=== PATIENT | male | born 1970 | race Hispanic/Latino ===

== ENCOUNTER 2019-06-01 18:04 | Emergency (ER) | payer OTHER ==
[2019-06-01 19:17] LABS: CREATININE 1.1 mg/dL (0.5-1.5); POTASSIUM 4.3 mmol/L (3.5-5.1)
[2019-06-01 19:18] LABS: BASOPHILS % (AUTO) 0.4 % (0.0-5.0); EOSINOPHILS % (AUTO) 2.4 % (0.0-8.0); HEMATOCRIT 47.2 % (42-54); LYMPHOCYTES % (AUTO) 5.2 % (21.0-51.0); MEAN CORPUSCULAR HEMOGLOBIN 31.8 pg (27.0-33.0); MEAN CORPUSCULAR HGB CONC 34.3 g/dL (32.0-36.0); MEAN CORPUSCULAR VOLUME 92.7 fL (79-99); MONOCYTES % (AUTO) 2.7 % (3.0-13.0); NEUTROPHILS % (AUTO) 88.9 % (40.0-77.0); PLATELET COUNT (AUTO) 242 K/uL (130-400); RED BLOOD CELL COUNT(AUTO) 5.09 MIL/uL (4.50-6.20); RED CELL DISTRIBUTION WIDTH 12.8 % (11.0-15.5); WHITE BLOOD COUNT (AUTO) 8.5 K/uL (4.8-10.8)
[2019-06-01 19:21] LABS: ALBUMIN 3.9 g/dL (3.5-5.0); BILIRUBIN,TOTAL 0.7 mg/dL (0.2-1.0)
[2019-06-01 20:52] LABS: APPEARANCE,URINE Clear (CLEAR); BILIRUBIN,URINE Negative (NEGATIVE); COLOR,URINE Yellow (YELLOW); GLUCOSE, URINE (UA) Negative (NEGATIVE); KETONES,URINE Negative (NEGATIVE); LEUKOCYTE ESTERASE ,URINE Negative (NEGATIVE); NITRATE,URINE Negative (NEGATIVE); OCCULT BLOOD,URINE Trace (NEGATIVE); PROTEIN,URINE Negative (NEGATIVE); UROBILINOGEN,URINE 0.2 mg/dL (0.2-1.0)
[2019-06-01 21:02] LABS: AMPHET/METH SCREEN,URINE NEGATIVE (NEGATIVE); BARBITURATE SCREEN, URINE NEGATIVE (NEGATIVE); BENZODIAZEPINES SCREEN,URINE POSITIVE (NEGATIVE); CANNABINOID SCREEN,URINE POSITIVE (NEGATIVE); COCAINE SCREEN,URINE POSITIVE (NEGATIVE); OPIATE SCREEN,URINE NEGATIVE (NEGATIVE); PHENCYCLIDINE SCREEN,URINE NEGATIVE (NEGATIVE)
[2019-06-01 21:05] LABS: BACTERIA,URINE Few /HPF (None Seen); MUCUS,URINE Few LPF (None Seen); RAPID GROUP A STREP NEGATIVE (NEGATIVE); RBC,URINE None Seen /HPF (0-1); SQUAMOUS EPITHELIAL CELL,UR None Seen /HPF (0-2); WBC,URINE 0-1 /HPF (0-1)
== END 2019-06-01 21:36 | disposition home or self-care (01) ==
LOC: EDH 18:04
DX: R11.2 Nausea with vomiting, unspecified (principal); R19.7 Diarrhea, unspecified; I10 Essential (primary) hypertension; K21.9 Gastro-esophageal reflux disease without esophagitis; F32.9 Major depressive disorder, single episode, unspecified; F41.9 Anxiety disorder, unspecified; Z87.891 Personal history of nicotine dependence
CPT/HCPCS: 36415; 76770; 80053; 80305; 81001; 85025; 87804; 87880

== ENCOUNTER 2019-12-11 23:46 | Emergency (ER) | payer OTHER ==
[2019-12-11] MEDS ORDERED: LIDOCAINE HCL 1% 20 ML VIAL ONE (23:57)
[2019-12-12] MEDS ORDERED: LIDOCAINE HCL 1% 20 ML VIAL ONE (00:03)
[2019-12-12] MEDS ORDERED: ERYTHROMYCIN BASE 0.5% OPHTH OINT 1 GM TUBE ONE (02:22)
== END 2019-12-12 00:48 | disposition home or self-care (01) ==
LOC: EDH 23:46
DX: T16.1XXA Foreign body in right ear, initial encounter (principal); F41.9 Anxiety disorder, unspecified; F32.9 Major depressive disorder, single episode, unspecified; I10 Essential (primary) hypertension; K21.9 Gastro-esophageal reflux disease without esophagitis; X58.XXXA Exposure to other specified factors, initial encounter; Y93.9 Activity, unspecified; Y92.89 Other specified places as the place of occurrence of the external cause; Y99.8 Other external cause status
CPT/HCPCS: 69200

== ENCOUNTER 2020-11-05 03:35 | Emergency (ER) | payer OTHER ==
[~2020-11-05] VITALS: Ht 180.3 cm; Wt 97.5 kg
[2020-11-05 03:42] VITALS: BP 130/61
[2020-11-05] MEDS ORDERED: FAMOTIDINE 20MG TAB ONE (05:46)
[2020-11-05] MEDS ORDERED: LIDOCAINE HCL 2% VISCOUS 15 ML UDCUP ONE (05:46)
[2020-11-05] MEDS ORDERED: PANTOPRAZOLE 40 MG TAB DR ONE (05:46)
[2020-11-05] MEDS ORDERED: MAGNESIUM HYDROXIDE 30 ML/UDCUP ONE (05:46)
[2020-11-05] MEDS ORDERED: DICYCLOMINE HCL 20 MG TAB ONE (05:47)
[2020-11-05] MEDS ORDERED: LIDOCAINE HCL 2% VISCOUS 15 ML UDCUP PO ONE (06:00)
[2020-11-05] MEDS ORDERED: ONDANSETRON ODT 4MG TAB SL ONE (06:00)
[2020-11-05] MEDS ORDERED: PANTOPRAZOLE 40 MG TAB DR PO SCH (06:00)
[2020-11-05] MEDS ORDERED: MAG/ALUM/SIMETH 30 ML UDCUP PO ONE (06:00)
[2020-11-05] MEDS ORDERED: DICYCLOMINE 20MG (10MG/ML) AMP IM ONE (06:00)
[2020-11-05] MEDS ORDERED: FAMOTIDINE 20MG TAB PO ONE (06:00)
[2020-11-05] MEDS ORDERED: METO-296 PO (06:37)
[2020-11-05] MEDS ORDERED: ONDA4TAB10 PO (06:37)
[2020-11-05] MEDS ORDERED: DICY20TA2 PO (06:37)
[2020-11-05] MEDS ORDERED: PANT40TA54 PO (06:37)
== END 2020-11-05 06:47 | disposition home or self-care (01) ==
LOC: EDH 04:07
DX: K21.9 Gastro-esophageal reflux disease without esophagitis (principal); R10.13 Epigastric pain; F31.9 Bipolar disorder, unspecified; F41.9 Anxiety disorder, unspecified; Z79.899 Other long term (current) drug therapy

== ENCOUNTER 2021-02-04 14:30 | Emergency (ER) | payer OTHER ==
[~2021-02-04] VITALS: Ht 180.3 cm; Wt 117.9 kg
[~2021-02-04 14:30] MED LIST: DICY20TA2 PO; METO-296 PO; ONDA4TAB10 PO; PANT40TA54 PO
[2021-02-04 14:31] VITALS: BP 136/85
[2021-02-04] MEDS ORDERED: CEFTRIAXONE 1G VIAL IM ONE (17:30)
[2021-02-04] MEDS ORDERED: LIDOCAINE HCL-MPF 1% 2ML VIAL ONE (18:13)
[2021-02-04] MEDS ORDERED: AMOX-429 PO (18:41)
== END 2021-02-04 18:49 | disposition home or self-care (01) ==
LOC: EDH 14:30
DX: H61.21 Impacted cerumen, right ear (principal); H66.91 Otitis media, unspecified, right ear; I10 Essential (primary) hypertension; Z79.899 Other long term (current) drug therapy; Z86.16 Personal history of COVID-19
CPT/HCPCS: 69210; 96372; 99284; J0696; J3490

== ENCOUNTER 2021-03-09 17:32 | Emergency (ER) | payer OTHER ==
[~2021-03-09] VITALS: Ht 180.3 cm; Wt 108.9 kg
[~2021-03-09 17:32] MED LIST changes: +AMOX-429 PO
[2021-03-09 17:37] VITALS: BP 105/79
[2021-03-09] MEDS ORDERED: ALBUTEROL INHALER 90MCG/INH IH SCH (18:30)
[2021-03-09] MEDS ORDERED: AMOX/CLAV 875/125MG TAB PO SCH (18:30)
[2021-03-09] MEDS ORDERED: PREDNISONE 20 MG TABLET PO SCH (18:30)
[2021-03-09] MEDS ORDERED: GUAIFENESIN-DM 200/20 MG 10 ML PO SCH (18:30)
[2021-03-09] MEDS ORDERED: PRED20TA3 PO (19:15)
[2021-03-09] MEDS ORDERED: AMOX-429 PO (19:15)
[2021-03-09] MEDS ORDERED: ALBU8.5H8 IH (19:15)
== END 2021-03-09 19:54 | disposition home or self-care (01) ==
LOC: EDH 17:32
DX: J40 Bronchitis, not specified as acute or chronic (principal); Z20.822 Contact with and (suspected) exposure to COVID-19
CPT/HCPCS: 71045; 87635; 87804 ×2; 87880; 99284; C9803

== ENCOUNTER 2025-02-04 08:19 | Emergency (ER) | payer SELFPAY ==
[~2025-02-04] VITALS: Ht 180.3 cm; Wt 104.3 kg
[~2025-02-04 08:19] MED LIST changes: +ALBU8.5H8 IH; +ONDA-243 PO; -ONDA4TAB10 PO; +PRED20TA3 PO
--- NOTE | 2025-02-04 08:23 | ERN ---
General Chief Complaint: Chest Pain Stated Complaint: CP Time Seen by MD: 08:20 Source: patient History of Present Illness Initial Comments Patient is a 54-year-old male coming in complaining of chest pain. Per patient the chest pain in his unbearable 01/29 present in the epigastric and midsternal region. The pain is sharp. Patient states he does not have any history of card iac issues in the past. Allergies: Coded Allergies: No Known Drug Allergies (Unverified Allergy, Unknown, 06/01/19) Home Meds Active Scripts Albuterol Sulfate (Proair Hfa) 8.5 Gm Hfa.aer.ad, 2 PUFF IH QIDP, #1 INHALER Prov:NOAM THOMAS 03/09/21 Prednisone (Prednisone) 20 Mg Tablet, 2 TAB PO AD for 5 Days, #10 TAB 0 Refills TAKE 1 TAB BY MOUTH THREE TIMES PER DAY X3 DAYS, THEN TAKE 1 TAB BY MOUTH TWICE A DAY X2 DAYS, THEN TAKE 1 TAB BY MOUTH ONCE A DAY X1 DAY. Prov:NOAM THOMAS 03/09/21 Amoxicillin/Potassium Clav (Augmentin 875-125 Tablet) 1 Each Tablet, 1 TAB PO BID for 10 Days, #20 TAB 0 Refills Prov:NOAM THOMAS 03/09/21 Amoxicillin/Potassium Clav (Augmentin 875-125 Tablet) 1 Each Tablet, 1 TAB PO BID for 10 Days, #20 TAB 0 Refills Prov:NOAM THOMAS 02/04/21 Metoclopramide HCl (Reglan) 10 Mg Tablet, 10 MG PO TIDP, #20 TAB 0 Refills Prov:FLY MINA MD 11/05/20 Pantoprazole Sodium (Pantoprazole Sodium) 40 Mg Tablet.dr, 40 MG PO DAILY, #10 TAB 0 Refills Prov:FLY MINA MD 11/05/20 Ondansetron (Ondansetron Odt) 4 Mg Tab.rapdis, 4 MG PO Q6HPRN, #20 TAB 0 Refills Prov:FLY MINA MD 11/05/20 Dicyclomine HCl (Bentyl) 20 Mg Tab, 20 MG PO Q6HPRN, #20 TAB 0 Refills Prov:FLY MINA MD 11/05/20 Past Medical History Past Medical History: Anxiety, Bipolar, Depression, GERD Medical History Other: COVID 10/2019 Surgical History Other: RT KNEE Social History Social History: Negative, Lives alone ROS Dictation CONSTITUTIONAL: No chills, no fever, no weakness, no diaphoresis, no malaise. HEAD/FACE: No signs of trauma. EENT: No eye pain, no blurred vision, no tearing, no double vision, no ear pain, no ear discharge, no nose pain, no nasal congestion, no throat pain, no throat swelling, no mouth pain. RESPIRATORY: No cough, no orthopnea, no SOB, no stridor, no wheezing. CARDIOVASCULAR: chest pain, no edema, no palpitations, no syncope. GASTROINTESTINAL/ABDOMINAL: No abdominal pain, no constipation, no diarrhea, no nausea, no vomiting. GENITOURINARY: No abnormal discharge, no dysuria, no frequent urination, no hematuria. No complaints of pain in the genitals. MUSCULOSKELETAL: No back pain, no gout, no joint pain, no joint swelling, no muscle pain, no muscle stiffness, no neck pain. INTEGUMENTARY: No change in color, no change in hair/nails, no dryness, no lesion, no lumps, no rash. NEUROLOGICAL/PSYCH: No anxiety, not depressed, no emotional problem, no headache, no numbness, no pre-existing deficit, no history of seizures, no tremors, no weakness. HEMATOLOGIC/LYMPHATIC: Not anemic, no history of blood clots, no apparent bleeding, no bruising, glands not swollen. All Systems Negative, Except as Noted. Physical Exam Physical Exam Dictation VITAL SIGNS: Reviewed. GENERAL APPEARANCE: Alert, oriented x3, no acute distress, obese. HEAD AND FACE: Non-traumatic. EYES: PERRL, pink conjunctivas, eyelid no trauma, anterior chamber clear. EARS: Pinnas intact and no signs of trauma or erythema. Ear canals clear and no discharge. TMs no erythema. NOSE: No discharge, no bleeding. OROPHARYNX: Mouth normal, teeth no caries, tongue pink. Pharynx clear, no erythema. Tonsils no exudates, no abscesses noted. Mucous membrane moist. NECK: Supple, non-tender, no thyromegaly, no masses, no JVD, no bruits. BREAST: Deferred. CHEST: No tenderness, no crepitus, no paradoxical movement, no retractions. LUNGS: Clear, well-ventilated, symmetric, no rales, no wheezing, no rhonchi, no stridor, good breath sounds bilaterally. HEART: Regular rate, regular rhythm, no murmur, no gallops. VASCULAR: No peripheral edema. ABDOMEN: Soft, positive bowel sounds, nondistended, no guarding, nontender, no rebound, no masses no hepatomegaly, no splenomegaly, no Guerra's sign, no hernias. RECTAL: Deferred. GENITAL: Deferred. NEUROLOGICAL: Normal speech, gross motor function intact, gross sensory function intact. MUSCULOSKELETAL: Neck nontender, full range of motion, back nontender, full range of motion. EXTREMITIES: Nontender, full range of motion. SKIN: Color pink, dry, no turgor, no rash, no lacerations, no abrasions, no contusions. LYMPHATICS: Deferred. Results Laboratory and Microbiology Lab and Micro Result Laboratory Tests Test 02/04/25 08:29 02/04/25 09:11 White Blood Count 5.9 K/uL (4.8-10.8) Red Blood Count 5.36 MIL/uL (4.50-6.20) Hemoglobin 16.6 g/dL (14.0-18.0) Hematocrit 48.6 % (42-54) Mean Corpuscular Volume 90.7 fL (79-99) Mean Corpuscular Hemoglobin 31.0 pg (27.0-33.0) Mean Corpuscular Hemoglobin Concent 34.2 g/dL (32.0-36.0) Red Cell Distribution Width 13.4 % (11.0-15.5) Platelet Count 283 K/uL (130-400) Mean Platelet Volume 10.6 fL (7.5-10.5) H Immature Granulocyte % (Auto) 0.5 % (0-1) Neutrophils (%) (Auto) 45.7 % (40.0-77.0) Lymphocytes (%) (Auto) 43.8 % (21.0-51.0) Monocytes (%) (Auto) 7.8 % (3.0-13.0) Eosinophils (%) (Auto) 1.7 % (0.0-8.0) Basophils (%) (Auto) 0.5 % (0.0-5.0) Neutrophils # (Auto) 2.7 K/uL (1.8-7.7) Lymphocytes # (Auto) 2.6 K/uL (1.0-4.8) Monocytes # (Auto) 0.5 K/uL (0.1-1.0) Eosinophils # (Auto) 0.10 K/uL (0.00-0.70) Basophils # (Auto) 0.03 K/uL (0.00-0.20) Absolute Immature Granulocyte (auto 0.03 K/uL (0-1) Nucleated Red Blood Cells 0.0 % (0.0-0.19) Prothrombin Time 10.4 SEC (9.6-11.6) Prothromb Time International Ratio 0.98 (0.85-1.15) Activated Partial Thromboplast Time 25.9 SEC (26.3-35.5) L Sodium Level 144 mmol/L (136-145) Potassium Level 3.9 mmol/L (3.5-5.1) Chloride Level 104 mmol/L (101-111) Carbon Dioxide Level 32 mmol/L (21-32) Blood Urea Nitrogen 6 mg/dL (7-18) L Creatinine 1.0 mg/dL (0.5-1.3) Glomerular Filtration Rate Calc 88 mL/min (>90) Random Glucose 100 mg/dL (70-105) Total Calcium 9.0 mg/dL (8.5-10.1) Magnesium Level 2.30 mg/dL (1.80-2.40) Total Creatine Kinase 188 U/L (21-232) Troponin I High Sensitivity 5 ng/L (4-75) Serum Alcohol 123 mg/dL (0-10) H Urine Color LIGHT-YELLOW (YELLOW) Urine Appearance CLEAR (CLEAR) Urine pH 6.5 (5.0-8.0) Urine Specific [place] 1.009 (1.001-1.031) Urine Protein NEGATIVE mg/dL (NEGATIVE) Urine Glucose (UA) NEGATIVE mg/dL (NEGATIVE) Urine Ketones NEGATIVE mg/dL (NEGATIVE) Urine Occult Blood NEGATIVE (NEGATIVE) Urine Nitrate NEGATIVE (NEGATIVE) Urine Bilirubin NEGATIVE mg/dL (NEGATIVE) Urine Urobilinogen 0.2 mg/dL (0.2-1.0) Urine Leukocyte Esterase NEGATIVE Kristen/uL Urine Opiates Screen NEGATIVE (NEGATIVE) Urine Barbiturates Screen NEGATIVE (NEGATIVE) Urine Phencyclidine Screen NEGATIVE (NEGATIVE) Urine Amphetamines Screen NEGATIVE (NEGATIVE) Urine Benzodiazepines Screen NEGATIVE (NEGATIVE) Urine Cocaine Screen POSITIVE (NEGATIVE) H Urine Marijuana (THC) Screen NEGATIVE (NEGATIVE) Labs Reviewed?: Yes EKG/XRAY/US/CT/MRI EKG Comment 02/04/2025 time 8:21 a.m. Ventricular rate 77 Sinus rhythm [place] [address] wave elevation or depression X-RAY Comment IMAGING REPORT Signed PATIENT: NICK YEUNG MR#: [id number] : 1970 SEX: M AGE: 54 LOCATION: [facility] ORDER 1 STATUS: [facility] ER REPORT#: [id number] SERVICE 9 REASON: cp ORDERING PHYSICIAN: JONATHAN GOINS MD PROCEDURE: CXR1VW - CHEST 1VW EXAM: CR Chest, single view. CLINICAL HISTORY: Chest pain. COMPARISON: None. FINDINGS: The lungs show no infiltrate or other acute findings. No pleural effusion or pneumothorax. The cardiomediastinal silhouette is within normal limits. No acute osseous abnormality. IMPRESSION: No acute cardiopulmonary pathology is evident. /[place] DICTATED BY: SUNITA CAMPO Jr., MD DATE: 02/04/251016 ELECTRONICALLY SIGNED BY: SUNITA CAMPO Jr., MD DATE: 02/04/251016 [facility] MDM: Differential diagnosis: Chest pain, NSTEMI, STEMI, cocaine abuse, drug abuse, alcohol abuse, Rationale: Tests considered and ordered secondary to shared decision making include: labs, ECG and radiology Previous outside records reviewed: Old ER visits. Risk of complication and/or morbidity or mortality of patient management: None Medications-Per medication reconciliation Need for hospitalization: Patient does meet criteria for hospitalization. Need for emergency major/minor surgery: No Patient is a 54-year-old gentleman coming in complaining of chest pain. Patient states that the chest pain woke him up in the morning. Laboratory workup disclose cocaine and alcohol. Rest of labs within normal limits. Patient was consulted and educated on cocaine abuse avoidance. He states that his pain has subsided. Patient will be discharged in stable condition with a diagnosis of cocaine abuse. ED Course Orders Procedure Category Date Status Time Cbc With Differential LAB 02/04/25 Complete 08:20 Prothrombin Time With LAB 02/04/25 Complete INR 08:20 Chest 1vw RAD 02/04/25 Resulted 08:20 12 Lead Ekg Tracing- EKG 02/04/25 Complete Technical 08:20 Aspirin 81mg Chew Tab PHA 02/04/25 Complete (Aspirin 81mg Chew 08:30 Nitroglycerin 0.4mg PHA 02/04/25 In Process Sl Tab (Nitrostat) 08:30 Magnesium LAB 02/04/25 Complete 08:20 Creatine Kinase, Total LAB 02/04/25 Complete 08:20 Troponin I High LAB 02/04/25 Complete Sensitivity 08:20 Urinalysis Profile LAB 02/04/25 Complete 08:20 Partial LAB 02/04/25 Complete Thromboplastin Time 08:20 Basic Metabolic Panel LAB 02/04/25 Complete 08:20 Drug Screen Urine LAB 02/04/25 Complete 08:25 Alcohol, Blood LAB 02/04/25 Complete 08:25 0.9%Nacl 1000ml (Ns PHA 02/04/25 Complete 1000ml) 10:00 Current Medications Medications (Trade) Dose Ordered Sig/Tiffanie Route PRN Reason Start Time Stop Time Status Last Admin Dose Admin Aspirin (Aspirin 81mg Chew Tab) 81 mg ONCE ONCE PO 02/04/25 08:30 02/04/25 08:31 DC 02/04/25 08:36 Nitroglycerin (Nitrostat) 0.4 mg Q5M PRN SL CHEST PAIN 02/04/25 08:30 02/04/25 08:37 Sodium Chloride 1,000 ml @ 0 mls/hr ONCE ONCE IV 02/04/25 10:00 02/04/25 10:01 DC 02/04/25 10:06 Vital Signs Date Time Temp Pulse Resp B/P (MAP) Pulse Ox O2 Delivery O2 Flow Rate FiO2 02/04/25 08:24 96.6 85 20 190/127 100 Room Air* 0 21 02/04/25 08:20 96.6 85 20 190/127 100 Room Air 0 DX & DISP Disposition: Discharge Departure Impression: Primary Impression: Cocaine abuse Additional Impressions: Gastritis, Alcohol abuse Condition: Stable Additional Instructions: You have been reviewed in the emergency department at [facility] after presenting with chest pain. After considering your history, your risk factors, your EKG and your blood test troponins, have been found to be at very low risk less than (1 in 100) of having a major adverse cardiac event (like heart attack) in the near future. In the " low risk" group, the risks of doing further tests and treatment as the inpatient outweighs the benefits. In many patients in the low risk group for the test of any sort or unnecessary, however he should discuss this further with his general practitioner who will understand the medical and personal backgrounds better. Because we have never declared you" no risk" we would suggest. 1 returning for medical review if you have further episodes of chest pain/arm pain or other concerning symptoms like dizziness, collapse, palpitations or shortness of breath. 2. Following up with your local doctor who will consider the need for further testing and will also ensure that any modifiable risk factors you may have for heart disease are optimally managed. Patient will be discharged in stable condition at the moment discharge patient states , no chest pain Referrals: SELF,REFERRAL (PCP) MAURICE ANTONIO MD Time of Disposition: 10:37 JONATHAN GOINS MD Feb 04, 2025 08:23
[2025-02-04 08:24] VITALS: BP 190/127; PULSE 85; RESP 20; TEMP 96.6; O2SAT 100
--- NOTE | 2025-02-04 08:27 | EKG ---
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
[2025-02-04] MEDS: ASPIRIN 81MG CHEW TAB PO ONE (08:36)
[2025-02-04] MEDS: NITROGLYCERIN 0.4 MG SL TAB SL PRN (08:37)
[2025-02-04 08:38] LABS: IMMATURE GRANULOCYTE ABSOLUTE 0.03 K/uL (0-1); NUCLEATED RED BLOOD CELLS 0.0 % (0.0-0.19); PLATELET COUNT (AUTO) 283 K/uL (130-400); RED BLOOD CELL COUNT(AUTO) 5.36 MIL/uL (4.50-6.20); RED CELL DISTRIBUTION WIDTH 13.4 % (11.0-15.5); WHITE BLOOD COUNT (AUTO) 5.9 K/uL (4.8-10.8)
[2025-02-04 08:47] LABS: INR 0.98 (0.85-1.15)
[2025-02-04 08:53] LABS: CREATINE KINASE, TOTAL 188.0 U/L (21-232); CREATININE 1.0 mg/dL (0.5-1.3); GLOMERULAR FILTR. RATE CALC 88.0 mL/min (>90); GLUCOSE,RANDOM 100.0 mg/dL (70-105); SODIUM SERUM 144.0 mmol/L (136-145); UREA NITROGEN, BLOOD 6.0 mg/dL (7-18)
--- NOTE | 2025-02-04 09:17 | HMCIMG ---
EXAM: CR Chest, single view. CLINICAL HISTORY: Chest pain. COMPARISON: None. FINDINGS: The lungs show no infiltrate or other acute findings. No pleural effusion or pneumothorax. The cardiomediastinal silhouette is within normal limits. No acute osseous abnormality. IMPRESSION: No acute cardiopulmonary pathology is evident. /[place]
[2025-02-04 09:40] LABS: APPEARANCE,URINE CLEAR (CLEAR); GLUCOSE, URINE (UA) NEGATIVE (NEGATIVE); LEUKOCYTE ESTERASE ,URINE NEGATIVE Leu/uL (NEGATIVE); NITRATE,URINE NEGATIVE (NEGATIVE); OCCULT BLOOD,URINE NEGATIVE (NEGATIVE)
[2025-02-04 09:42] LABS: ADD UA MICROSCOPIC NO
[2025-02-04 09:48] LABS: AMPHET/METH SCREEN,URINE NEGATIVE (NEGATIVE); BARBITURATE SCREEN, URINE NEGATIVE (NEGATIVE); CANNABINOID SCREEN,URINE NEGATIVE (NEGATIVE); COCAINE SCREEN,URINE POSITIVE (NEGATIVE)
[2025-02-04] MEDS: 0.9%NACL 1000ML 1,000 ML IV ONE (10:06)
== END 2025-02-04 11:23 | disposition home or self-care (01) ==
LOC: EDH 08:19
DX: K29.70 Gastritis, unspecified, without bleeding (principal); F14.10 Cocaine abuse, uncomplicated; F10.10 Alcohol abuse, uncomplicated; F41.9 Anxiety disorder, unspecified; F31.9 Bipolar disorder, unspecified; Z79.899 Other long term (current) drug therapy; Z79.2 Long term (current) use of antibiotics
CPT/HCPCS: 99285; 96360; 71045; 82550; 83735; 84484; 80048; 80305; 85025; 85610; 85730; 81003; 36415; 93005; J7030

== ENCOUNTER 2025-02-24 12:10 | Inpatient (IN) | payer SELFPAY ==
[~2025-02-24] VITALS: Ht 180.3 cm; Wt 112.5 kg
[2025-02-24 12:41] LABS: IMMATURE GRANULOCYTE ABSOLUTE 0.01 K/uL (0-1); NUCLEATED RED BLOOD CELLS 0.0 % (0.0-0.19); PLATELET COUNT (AUTO) 187 K/uL (130-400); RED BLOOD CELL COUNT(AUTO) 4.56 MIL/uL (4.50-6.20); RED CELL DISTRIBUTION WIDTH 13.1 % (11.0-15.5); WHITE BLOOD COUNT (AUTO) 6.8 K/uL (4.8-10.8)
[2025-02-24 12:49] LABS: CREATININE 0.9 mg/dL (0.5-1.3); GLOMERULAR FILTR. RATE CALC 100.0 mL/min (>90); GLUCOSE,RANDOM 107.0 mg/dL (70-105); SODIUM SERUM 136.0 mmol/L (136-145); UREA NITROGEN, BLOOD 11.0 mg/dL (7-18)
[2025-02-24 13:00] LABS: APPEARANCE,URINE CLEAR (CLEAR); GLUCOSE, URINE (UA) NEGATIVE (NEGATIVE); LEUKOCYTE ESTERASE ,URINE NEGATIVE Leu/uL (NEGATIVE); NITRATE,URINE NEGATIVE (NEGATIVE); OCCULT BLOOD,URINE NEGATIVE (NEGATIVE)
[2025-02-24 13:05] LABS: ADD UA MICROSCOPIC NO
[2025-02-24 13:09] LABS: AMPHET/METH SCREEN,URINE NEGATIVE (NEGATIVE); BARBITURATE SCREEN, URINE NEGATIVE (NEGATIVE); CANNABINOID SCREEN,URINE NEGATIVE (NEGATIVE); COCAINE SCREEN,URINE NEGATIVE (NEGATIVE)
--- NOTE | 2025-02-24 13:34 | HMCIMG ---
EXAM: CR Chest, 1 View. CLINICAL HISTORY: CP COMPARISON: 02/04 8:47 EDT CR - CHEST 1VW FINDINGS: LUNGS: There is no mass, infiltrate, or acute pulmonary abnormality. PLEURAL SPACES: No pleural effusion or pneumothorax. MEDIASTINUM: Cardiac size and mediastinal contours within normal limits. BONES: No aggressive appearing osseous lesion seen. IMPRESSION: No acute cardiopulmonary pathology is evident. /[place]
--- NOTE | 2025-02-24 14:15 | ERN ---
General Chief Complaint: Chest Pain Stated Complaint: CP Time Seen by MD: 12:15 Source: patient History of Present Illness Initial Comments Patient is a 54-year-old gentleman coming in complaining of chest pressure. Patient states that the chest pressure began about an hour and a half ago. He states that the discomfort was brought upon on its own he was not doing anything physical. He has had something similar before. Allergies: Coded Allergies: No Known Drug Allergies (Unverified Allergy, Unknown, 06/01/19) Home Meds Active Scripts Albuterol Sulfate (Proair Hfa) 8.5 Gm Hfa.aer.ad, 2 PUFF IH QIDP, #1 INHALER Prov:NOAM THOMAS 03/09/21 Prednisone (Prednisone) 20 Mg Tablet, 2 TAB PO AD for 5 Days, #10 TAB 0 Refills TAKE 1 TAB BY MOUTH THREE TIMES PER DAY X3 DAYS, THEN TAKE 1 TAB BY MOUTH TWICE A DAY X2 DAYS, THEN TAKE 1 TAB BY MOUTH ONCE A DAY X1 DAY. Prov:NOAM THOMAS 03/09/21 Amoxicillin/Potassium Clav (Augmentin 875-125 Tablet) 1 Each Tablet, 1 TAB PO BID for 10 Days, #20 TAB 0 Refills Prov:NOAM THOMAS 03/09/21 Amoxicillin/Potassium Clav (Augmentin 875-125 Tablet) 1 Each Tablet, 1 TAB PO BID for 10 Days, #20 TAB 0 Refills Prov:NOAM THOMAS 02/04/21 Metoclopramide HCl (Reglan) 10 Mg Tablet, 10 MG PO TIDP, #20 TAB 0 Refills Prov:FLY MINA MD 11/05/20 Pantoprazole Sodium (Pantoprazole Sodium) 40 Mg Tablet.dr, 40 MG PO DAILY, #10 TAB 0 Refills Prov:FLY MINA MD 11/05/20 Ondansetron (Ondansetron Odt) 4 Mg Tab.rapdis, 4 MG PO Q6HPRN, #20 TAB 0 Refills Prov:FLY MINA MD 11/05/20 Dicyclomine HCl (Bentyl) 20 Mg Tab, 20 MG PO Q6HPRN, #20 TAB 0 Refills Prov:FLY MINA MD 11/05/20 Past Medical History Past Medical History: No Pertinent History Medical History Other: COVID 10/2019 Past Surgical History: Other Surgical History Other: BILATERAL KNEE REPLACEMENT Social History Social History: Negative, Lives alone ROS Dictation CONSTITUTIONAL: No chills, no fever, no weakness, no diaphoresis, no malaise. HEAD/FACE: No signs of trauma. EENT: No eye pain, no blurred vision, no tearing, no double vision, no ear pain, no ear discharge, no nose pain, no nasal congestion, no throat pain, no throat swelling, no mouth pain. RESPIRATORY: No cough, no orthopnea, no SOB, no stridor, no wheezing. CARDIOVASCULAR: chest pain, no edema, no palpitations, no syncope. GASTROINTESTINAL/ABDOMINAL: No abdominal pain, no constipation, no diarrhea, no nausea, no vomiting. GENITOURINARY: No abnormal discharge, no dysuria, no frequent urination, no hematuria. No complaints of pain in the genitals. MUSCULOSKELETAL: No back pain, no gout, no joint pain, no joint swelling, no muscle pain, no muscle stiffness, no neck pain. INTEGUMENTARY: No change in color, no change in hair/nails, no dryness, no lesion, no lumps, no rash. NEUROLOGICAL/PSYCH: No anxiety, not depressed, no emotional problem, no headache, no numbness, no pre-existing deficit, no history of seizures, no tremors, no weakness. HEMATOLOGIC/LYMPHATIC: Not anemic, no history of blood clots, no apparent bleeding, no bruising, glands not swollen. All Systems Negative, Except as Noted. Physical Exam Physical Exam Dictation VITAL SIGNS: Reviewed. GENERAL APPEARANCE: Alert, oriented x3, no acute distress, obese. HEAD AND FACE: Non-traumatic. EYES: PERRL, pink conjunctivas, eyelid no trauma, anterior chamber clear. EARS: Pinnas intact and no signs of trauma or erythema. Ear canals clear and no discharge. TMs no erythema. NOSE: No discharge, no bleeding. OROPHARYNX: Mouth normal, teeth no caries, tongue pink. Pharynx clear, no erythema. Tonsils no exudates, no abscesses noted. Mucous membrane moist. NECK: Supple, non-tender, no thyromegaly, no masses, no JVD, no bruits. BREAST: Deferred. CHEST: No tenderness, no crepitus, no paradoxical movement, no retractions. LUNGS: Clear, well-ventilated, symmetric, no rales, no wheezing, no rhonchi, no stridor, good breath sounds bilaterally. HEART: Regular rate, regular rhythm, no murmur, no gallops. VASCULAR: No peripheral edema. ABDOMEN: Soft, positive bowel sounds, nondistended, no guarding, nontender, no rebound, no masses no hepatomegaly, no splenomegaly, no Guerra's sign, no hernias. RECTAL: Deferred. GENITAL: Deferred. NEUROLOGICAL: Normal speech, gross motor function intact, gross sensory function intact. MUSCULOSKELETAL: Neck nontender, full range of motion, back nontender, full range of motion. EXTREMITIES: Nontender, full range of motion. SKIN: Color pink, dry, no turgor, no rash, no lacerations, no abrasions, no contusions. LYMPHATICS: Deferred. Results Laboratory and Microbiology Lab and Micro Result Laboratory Tests Test 02/24/25 12:32 02/24/25 12:35 02/24/25 14:18 Urine Color COLORLESS (YELLOW) Urine Appearance CLEAR (CLEAR) Urine pH 5.5 (5.0-8.0) Urine Specific [place] 1.005 (1.001-1.031) Urine Protein NEGATIVE mg/dL (NEGATIVE) Urine Glucose (UA) NEGATIVE mg/dL (NEGATIVE) Urine Ketones NEGATIVE mg/dL (NEGATIVE) Urine Occult Blood NEGATIVE (NEGATIVE) Urine Nitrate NEGATIVE (NEGATIVE) Urine Bilirubin NEGATIVE mg/dL (NEGATIVE) Urine Urobilinogen 0.2 mg/dL (0.2-1.0) Urine Leukocyte Esterase NEGATIVE Kristen/uL Urine Opiates Screen NEGATIVE (NEGATIVE) Urine Barbiturates Screen NEGATIVE (NEGATIVE) Urine Phencyclidine Screen NEGATIVE (NEGATIVE) Urine Amphetamines Screen NEGATIVE (NEGATIVE) Urine Benzodiazepines Screen NEGATIVE (NEGATIVE) Urine Cocaine Screen NEGATIVE (NEGATIVE) Urine Marijuana (THC) Screen NEGATIVE (NEGATIVE) White Blood Count 6.8 K/uL (4.8-10.8) Red Blood Count 4.56 MIL/uL (4.50-6.20) Hemoglobin 14.5 g/dL (14.0-18.0) Hematocrit 41.7 % (42-54) L Mean Corpuscular Volume 91.4 fL (79-99) Mean Corpuscular Hemoglobin 31.8 pg (27.0-33.0) Mean Corpuscular Hemoglobin Concent 34.8 g/dL (32.0-36.0) Red Cell Distribution Width 13.1 % (11.0-15.5) Platelet Count 187 K/uL (130-400) Mean Platelet Volume 11.1 fL (7.5-10.5) H Immature Granulocyte % (Auto) 0.1 % (0-1) Neutrophils (%) (Auto) 69.4 % (40.0-77.0) Lymphocytes (%) (Auto) 18.9 % (21.0-51.0) L Monocytes (%) (Auto) 9.9 % (3.0-13.0) Eosinophils (%) (Auto) 1.3 % (0.0-8.0) Basophils (%) (Auto) 0.4 % (0.0-5.0) Neutrophils # (Auto) 4.7 K/uL (1.8-7.7) Lymphocytes # (Auto) 1.3 K/uL (1.0-4.8) Monocytes # (Auto) 0.7 K/uL (0.1-1.0) Eosinophils # (Auto) 0.09 K/uL (0.00-0.70) Basophils # (Auto) 0.03 K/uL (0.00-0.20) Absolute Immature Granulocyte (auto 0.01 K/uL (0-1) Nucleated Red Blood Cells 0.0 % (0.0-0.19) Sodium Level 136 mmol/L (136-145) Potassium Level 4.2 mmol/L (3.5-5.1) Chloride Level 101 mmol/L (101-111) Carbon Dioxide Level 30 mmol/L (21-32) Blood Urea Nitrogen 11 mg/dL (7-18) Creatinine 0.9 mg/dL (0.5-1.3) Glomerular Filtration Rate Calc 100 mL/min (>90) Random Glucose 107 mg/dL (70-105) H Total Calcium 8.1 mg/dL (8.5-10.1) L Magnesium Level 1.90 mg/dL (1.80-2.40) Troponin I High Sensitivity 5 ng/L (4-75) 5 ng/L (4-75) B-Type Natriuretic Peptide 28 pg/mL (0-100) Labs Reviewed?: Yes EKG/XRAY/US/CT/MRI EKG Comment 02/24/2025 time 12:06 p.m. Ventricular rate 80 Sinus rhythm [place] [address] wave elevation or depression X-RAY Comment [address] [place], [place] [id number] IMAGING REPORT Signed PATIENT: NICK YEUNG MR#: [id number] : 1970 SEX: M AGE: 54 LOCATION: [facility] ORDER 1213 STATUS: REG ER REPORT#: [id number] SERVICE 1212 REASON: CP ORDERING PHYSICIAN: JONATHAN GOINS MD PROCEDURE: CXR1VW - CHEST 1VW EXAM: CR Chest, 1 View. CLINICAL HISTORY: CP COMPARISON: 02/04 8:47 EDT CR - CHEST 1VW FINDINGS: LUNGS: There is no mass, infiltrate, or acute pulmonary abnormality. PLEURAL SPACES: No pleural effusion or pneumothorax. MEDIASTINUM: Cardiac size and mediastinal contours within normal limits. BONES: No aggressive appearing osseous lesion seen. IMPRESSION: No acute cardiopulmonary pathology is evident. /Homer DICTATED BY: SUNITA CAMPO Jr., MD DATE: 02/24/251433 ELECTRONICALLY SIGNED BY: SUNITA CAMPO Jr., MD DATE: 02/24/251433 [facility] MDM: Differential diagnosis: Angina, STEMI, NSTEMI, chest pain, Rationale: Tests considered and ordered secondary to shared decision making include: Previous outside records reviewed: Old ER visits. Risk of complication and/or morbidity or mortality of patient management: None Medications-Per medication reconciliation Need for hospitalization: Patient does meet criteria for hospitalization. Need for emergency major/minor surgery: No There are no social concerns with this patient. Prescription drug management Prescriptions will include symptomatic care Patient's prior external medical records from other ER visits were reviewed by me as indicated. Prior testing and results from previous visits were reviewed. Prior tests were taken into account with medical decision making and resource utilization, independent historian/historians were used to obtain complete medical history. I independently interpreted the test that were performed, results were reviewed by me and considered findings on radiology if ordered. Medical management and examination interpretation discussions were had by me with other qualified healthcare professionals as indicated for the patient's care. Patient is a 54-year-old gentleman coming in complaining of chest pain. Patient states that the chest pain improved somewhat but is still present. Cardiac enzymes x2 is negative for any findings patient will be admitted under t care of hospitalist group for observation ongoing management. ED Course Orders Procedure Category Date Status Time Cbc With Differential LAB 02/24/25 Complete 12:12 12 Lead Ekg Tracing- EKG 02/24/25 Logged Technical 12:12 Troponin I High LAB 02/24/25 Complete Sensitivity 12:12 B-Type Natriuretic LAB 02/24/25 Complete Peptide 12:12 Chest 1vw RAD 02/24/25 Resulted 12:12 Magnesium LAB 02/24/25 Complete 12:12 Urinalysis Profile LAB 02/24/25 Complete 12:12 Drug Screen Urine LAB 02/24/25 Complete 12:12 Basic Metabolic Panel LAB 02/24/25 Complete 12:12 Troponin I High LAB 02/24/25 Complete Sensitivity 14:10 Ondansetron 4mg Inj PHA 02/24/25 Complete (Zofran 4mg Inj) 14:30 Lidocaine Hcl 2% PHA 02/24/25 Complete Viscous (Lidocaine Hcl 14:30 Mag/Alum/Simeth 30ml PHA 02/24/25 Complete (Maalox Plus 30ml) 14:30 Pantoprazole 40mg Inj PHA 02/24/25 Complete (Protonix 40mg Inj 14:30 Aspirin 325mg Ec Tab PHA 02/24/25 Complete (Aspirin 325mg Ec T 15:00 Current Medications Medications (Trade) Dose Ordered Sig/Tiffanie Route PRN Reason Start Time Stop Time Status Last Admin Dose Admin Al Hydroxide/Mg Hydroxide (MAALox PLUS 30ML) 30 ml ONCE ONCE PO 02/24/25 14:30 02/24/25 14:31 DC 02/24/25 14:19 Aspirin (Aspirin 325mg Ec Tab) 325 mg ONCE ONCE PO 02/24/25 15:00 02/24/25 15:01 DC Lidocaine HCl (Lidocaine HCl 2% Viscous) 10 ml ONCE ONCE PO 02/24/25 14:30 02/24/25 14:31 DC 02/24/25 14:20 Ondansetron HCl (zoFRAN 4MG INJ) 4 mg ONCE ONCE IVP 02/24/25 14:30 02/24/25 14:31 DC 02/24/25 14:20 Pantoprazole Sodium (PROTonix 40MG INJ) 40 mg ONCE ONCE IVP 02/24/25 14:30 02/24/25 14:31 DC 02/24/25 14:20 Vital Signs Date Time Temp Pulse Resp B/P (MAP) Pulse Ox O2 Delivery O2 Flow Rate FiO2 02/24/25 14:34 73 16 133/79 99 Room Air* 0 21 02/24/25 13:10 74 16 128/78 97 Room Air* 0 21 02/24/25 12:13 98.2 80 16 101/65 98 Room Air 0 DX & DISP Disposition: Inpatient Decision to Admit Time: 15:18 Departure Impression: Primary Impression: Chest pain Condition: Stable Referrals: RIANNA MOURA (PCP) JONATHAN GOINS MD Feb 24, 2025 14:15
[2025-02-24] MEDS: MAG/ALUM/SIMETH 30 ML UDCUP PO ONE (14:19)
[2025-02-24] MEDS: LIDOCAINE HCL 2% VISCOUS 15 ML UDCUP PO ONE (14:20)
[2025-02-24] MEDS: ASPIRIN 325MG EC TAB PO ONE (15:11)
--- NOTE | 2025-02-24 15:11 | NUR ---
PT TOOK ASPIRIN 325 MG PO BY EMS PRIOR TO ARRIVAL TO ER
--- NOTE | 2025-02-24 16:10 | HP ---
[facility] HISTORY AND PHYSICAL Date of Service: Feb 24, 2025 Time of Service: 16:10 HISTORY OF PRESENT ILLNESS: 54-year-old male with no significant past medical history history who presented to the hospital secondary to chest pain. Patient states while at work he noted that he was having midsternal chest pain. The pain is located in the midsternal area and does not radiate. He did not have any paresthesias, arm numbness associated with the pain. Denied any pain radiating towards his jaw or back. Describes the pain as sharp, pressure-like in intensity. He had a similar episode of pain around two weeks ago when he came to the emergency room. He was discharged and recommended to follow up with his primary care provider. He currently does not take any medications at home. Denied any cough, fever, abdominal pain, nausea, vomiting. He Did have episodes of sweating with the pain. He also felt short of breath during the episode of pain. Labs were notable for white count of 6.8, hemoglobin was 14.5, platelet count was 187 K, sodium was 136, potassium was 4.2, creatinine was 0.9, blood glucose was 107, calcium was 8.1 Troponin was negative x2, BNP was 28 Patient had chest x-ray done which was negative REVIEW OF SYSTEMS CONSTITUTIONAL: Denies fevers, chills, or night sweats. No unintentional weight loss reported. NEUROLOGICAL: Denies headache, amaurosis fugax, motor weakness, sensory deficit, vertigo/spinning sensation, gait abnormalities, or tremors. ENT: No hearing loss, otalgia, otorrhea, rhinitis, rhinorrhea, hoarseness, or sore throat. CARDIOVASCULAR: Positive for chest pain, shortness of breath. Denied any orthopnea, PND PULMONARY: Denies any shortness of breath, cough, phlegm/sputum, hemoptysis, pleuritic chest pain. SLEEP: Denies morning headaches, daytime somnolence or napping. Denies difficulty falling asleep, staying asleep, waking from sleep. Denies knowledge of snoring. GASTROINTESTINAL: Denies any type of dysphagia to either liquids or solids. Denies nausea, vomiting, pyrosis, early satiety, abdominal pain, diarrhea, constipation, or changes in stool consistency or caliber. Denies coffee-ground emesis, hematemesis, hematochezia, or melanotic stools. GENITOURINARY: Denies frequency, urgency, nocturia, hematuria or incontinence (Storage/Irritative symptoms.) Low urinary stream, straining to void, urinary intermittency or hesitancy, splitting of the voiding stream, terminal dribbling. ENDOCRINOLOGIC: Denies polyuria, polydipsia, polyphagia or heat/cold intolerances. HEMATOLOGIC: Denies thrombophilia/previous clots, or coagulopathy/bleeding disorders. ONCOLOGIC: Denies personal history of malignancy. DERMATOLOGIC: Denies rashes or pruritus. PSYCHIATRIC: Denies any suicidal or homicidal ideation. Denies hallucinations. PAST MEDICAL HISTORY: No significant past medical history PAST SURGICAL HISTORY: History of knee surgery PAST SOCIAL HISTORY: He used to smoke cigar but quit around three weeks ago. He drinks but quit drinking three weeks ago. He would drink around twice a week. He has a history of cocaine use FAMILY HISTORY: History of pacemaker placement for the father Coded Allergies: No Known Drug Allergies (Unverified Allergy, Unknown, 06/01/19) PHYSICAL EXAM GENERAL APPEARANCE: The patient is awake, alert, and oriented, in no acute cardiopulmonary distress. NEUROLOGICAL: Cranial nerves II-XII grossly intact. Motor is 5/5 in bilateral upper and lower extremities proximal to distal. No sensory deficits. HEENT: Face is symmetric. Pupils are equal and reactive. Extraocular movements are intact. NECK: Supple. No JVD. No thyromegaly. No submental, submandibular, pre- /postauricular, occipital or supraclavicular lymphadenopathy. CHEST: Normal chest expansion. No Telemetry. LUNGS: Absence of any rales, rhonchi or any wheezing. CARDIOVASCULAR: Regular. S1 and S2 normal. No appreciable rubs, murmurs or gallops. Mild pain on palpation in the midsternal area. ABDOMEN: Soft, nontender, and nondistended. There is no rebound, voluntary guarding, or rigidity. : Deferred. No Goldstein. EXTREMITIES: Non-edematous and not cyanotic. No clubbing. Good capillary refill. SKIN: No skin breakdown. Vital Sign (Last 24 Hours) 02/24/25 15:45 Temp 98.2 Pulse 74 Resp 16 B/P (MAP) 120/72 Pulse Ox 98 O2 Delivery Room Air* O2 Flow Rate 0 FiO2 21 LABS: Laboratory: Test 02/24/25 14:18 02/24/25 12:35 02/24/25 12:32 Range/Units Troponin I High Sensitivity 5 4-75 ng/L White Blood Count 6.8 4.8-10.8 K/uL Red Blood Count 4.56 4.50-6.20 MIL/uL Hemoglobin 14.5 14.0-18.0 g/dL Hematocrit 41.7 L 42-54 % Mean Corpuscular Volume 91.4 79-99 fL Mean Corpuscular Hemoglobin 31.8 27.0-33.0 pg Mean Corpuscular Hemoglobin Concent 34.8 32.0-36.0 g/dL Red Cell Distribution Width 13.1 11.0-15.5 % Platelet Count 187 130-400 K/uL Mean Platelet Volume 11.1 H 7.5-10.5 fL Immature Granulocyte % (Auto) 0.1 0-1 % Neutrophils (%) (Auto) 69.4 40.0-77.0 % Lymphocytes (%) (Auto) 18.9 L 21.0-51.0 % Monocytes (%) (Auto) 9.9 3.0-13.0 % Eosinophils (%) (Auto) 1.3 0.0-8.0 % Basophils (%) (Auto) 0.4 0.0-5.0 % Neutrophils # (Auto) 4.7 1.8-7.7 K/uL Lymphocytes # (Auto) 1.3 1.0-4.8 K/uL Monocytes # (Auto) 0.7 0.1-1.0 K/uL Eosinophils # (Auto) 0.09 0.00-0.70 K/uL Basophils # (Auto) 0.03 0.00-0.20 K/uL Absolute Immature Granulocyte (auto 0.01 0-1 K/uL Nucleated Red Blood Cells 0.0 0.0-0.19 % Sodium Level 136 136-145 mmol/L Potassium Level 4.2 3.5-5.1 mmol/L Chloride Level 101 101-111 mmol/L Carbon Dioxide Level 30 21-32 mmol/L Blood Urea Nitrogen 11 7-18 mg/dL Creatinine 0.9 0.5-1.3 mg/dL Glomerular Filtration Rate Calc 100 >90 mL/min Random Glucose 107 H 70-105 mg/dL Total Calcium 8.1 L 8.5-10.1 mg/dL Magnesium Level 1.90 1.80-2.40 mg/dL B-Type Natriuretic Peptide 28 0-100 pg/mL Urine Color COLORLESS YELLOW Urine Appearance CLEAR CLEAR Urine pH 5.5 5.0-8.0 Urine Specific [place] 1.005 1.001-1.031 Urine Protein NEGATIVE NEGATIVE mg/dL Urine Glucose (UA) NEGATIVE NEGATIVE mg/dL Urine Ketones NEGATIVE NEGATIVE mg/dL Urine Occult Blood NEGATIVE NEGATIVE Urine Nitrate NEGATIVE NEGATIVE Urine Bilirubin NEGATIVE NEGATIVE mg/dL Urine Urobilinogen 0.2 0.2-1.0 mg/dL Urine Leukocyte Esterase NEGATIVE NEGATIVE Kristen/uL Urine Opiates Screen NEGATIVE NEGATIVE Urine Barbiturates Screen NEGATIVE NEGATIVE Urine Phencyclidine Screen NEGATIVE NEGATIVE Urine Amphetamines Screen NEGATIVE NEGATIVE Urine Benzodiazepines Screen NEGATIVE NEGATIVE Urine Cocaine Screen NEGATIVE NEGATIVE Urine Marijuana (THC) Screen NEGATIVE NEGATIVE DIAGNOSTICS / RADIOLOGY: [ ] ASSESSMENT: Chest pain ACS rule out History of smoking History of alcohol use History of cocaine use PLAN: - patient to be admitted to medical-surgical unit with telemetry -in reference to chest pain. We will trend troponins q.6 hours to rule out ACS. We will also obtain echocardiogram. Secondary to patient's recurrent episodes of pain we will request consultation with Cardiology. -patient will be started on potassium and magnesium protocol -check TSH, hemoglobin A1c, lipid panel in a.m. -further orders per hospitalization course Advanced Care Planning Which of the following were discussed: Hospice care: Yes __ No _x_ Therapeutic options: Yes __ No __ Advance directives: Yes __ No __ Other discussions: Discussed with who?: patient (Patient, family or surrogates) Voluntary nature of this service was explained to the patient? Yes _x_ No __ Amount of time spent: 20 minutes RAMONITA Ca MD, MD Feb 24, 2025 16:10
--- NOTE | 2025-02-24 16:25 | EKG ---
[facility] Test Date: 2025-02-24 Test Time: 12:06:43 Pat Name: NICK YEUNG Department: ED Room: 428 Gender: M Manager Transit: [id number] : 1970 Requested By: JONATHAN GOINS Order Number: [id number] Reading MD: Micheline Quinones Measurements Intervals [place] Rate: 80 P: 4 VT: 178 QRS: -45 QRSD: 102 T: -7 QT: 394 QTc: 454 Interpretive Statements Sinus rhythm Left axis deviation Compared to ECG 02/04/2025 08:21:09 Left-axis deviation now present Myocardial infarct finding no longer present Electronically Signed On 02-25-2025 12:31:43 GOLD BURNISHER by Micheline Quinones Please click the below link to view image of tracing.
[2025-02-24] MEDS ORDERED: PoTASSium chloRIDE 20MEQ ER 20 MEQ ERTAB PO PRN (16:30)
[2025-02-24] MEDS ORDERED: PoTASSium chl 10% ELIXIR 20MEQ 20 MEQ/15 ML UDCUP PO PRN (16:30)
[2025-02-24] MEDS ORDERED: NITROGLYCERIN 0.4 MG SL TAB SL PRN (16:30)
[2025-02-24] MEDS ORDERED: MAGNESIUM 2GM PREMIX 50ML 50 ML IV PRN (16:30)
--- NOTE | 2025-02-24 19:20 | NUR ---
PT CARE ASSUMED AT THIS TIME
--- NOTE | 2025-02-24 19:49 | NUR ---
TRANSFER CARE TO ARGELIA RN AT THIS TIME. REPORT GIVEN.
[2025-02-24] MEDS ORDERED: CLON2TAB11 PO (19:58)
[2025-02-24] MEDS ORDERED: VORT20TA PO (19:58)
[2025-02-24] MEDS ORDERED: LAMO100T16 PO (19:58)
[2025-02-24] MEDS: FAMOTIDINE 20MG VIAL IV SCH (20:31)
--- NOTE | 2025-02-24 22:13 | CONS ---
CONSULT NOTE: CARDIOLOGY Reason for consult: Chest pain HPI/story at presentation: This is a pleasant 54-year-old male with past medical history as above presents for evaluation of chest discomfort. Pain is atypical, troponin 7 so far negative and cardiology was consulted. Stress test, echocardiogram ordered, 02/2025 Past medical history: See below Allergies, Meds See chart Review of systems Review of Systems Constitutional: Negative for chills and fever. HENT: Negative for ear discharge and ear pain. Eyes: Negative for photophobia and discharge. Respiratory: Negative for cough, sputum production and stridor. Cardiovascular: Negative for chest pain and palpitations. Gastrointestinal: Negative for diarrhea and vomiting. Genitourinary: Negative for frequency. Musculoskeletal: Negative for myalgias. Skin: Negative for rash. Neurological: Negative for focal weakness and seizures. Endo/Heme/Allergies: Negative for polydipsia. Psychiatric/Behavioral: Negative for hallucinations. Vitals see chart PHYSICAL EXAMINATION GENERAL: The patient is alert and oriented*3 HEENT: Nonicteric sclerae, non traumatic HEART: Regular rate and rhythm with no murmurs LUNGS: Clear to auscultation bilaterally ABDOMEN: No acute issues, non tender GENITAL, RECTAL: deferred SKIN: No rash NEUROLOGIC: NFND EXTREMITIES: No edema ASSESSMENT CHEST PAIN Atypical Associated with rest, good baseline functional capacity Very physically active Strong family history TOBACCO USE, FAMILY HISTORY, ALCOHOL USE, COCAINE USE CORE MEASURES Pending OTHER MEDICAL PROBLEMS Reviewed PLAN 02/24/2025 atypical symptoms, plan for stress test echocardiogram, will follow-up post. ATTESTATION I was involved substantially in the care of this patient Number and complexity of problems addressed: 1 acute illness with systemic features Amount and or complexity of data Review of prior external note(s) from each unique source: 2+ Ordering of each unique test : 0 Review of the result(s) of each unique test: 2+ Assessment requiring an independent historian(s): No Independent interpretation of test performed by another MD/QHCP/appropriate source (not separately reported) : No Discussion of management or test interpretation with external MD/QHCP/appropriate source (not separately reported) : No Risk status (cardiac, billing related): WALI Whittington MD Feb 24, 2025 22:13
[2025-02-24 22:20] VITALS: O2SAT 99
[2025-02-24 22:53] VITALS: BP 139/73; PULSE 72; RESP 18; TEMP 98.9
[2025-02-25 04:00] VITALS: BP 122/61; PULSE 73; RESP 18; TEMP 99.4
[2025-02-25 05:40] LABS: IMMATURE GRANULOCYTE ABSOLUTE 0.03 K/uL (0-1); NUCLEATED RED BLOOD CELLS 0.0 % (0.0-0.19); PLATELET COUNT (AUTO) 146 K/uL (130-400); RED BLOOD CELL COUNT(AUTO) 4.87 MIL/uL (4.50-6.20); RED CELL DISTRIBUTION WIDTH 13.1 % (11.0-15.5); WHITE BLOOD COUNT (AUTO) 7.0 K/uL (4.8-10.8)
[2025-02-25 05:45] LABS: CREATININE 1.1 mg/dL (0.5-1.3); GLOMERULAR FILTR. RATE CALC 79.0 mL/min (>90); GLUCOSE,RANDOM 110.0 mg/dL (70-105); SODIUM SERUM 135.0 mmol/L (136-145); UREA NITROGEN, BLOOD 9.0 mg/dL (7-18)
[2025-02-25 08:00] VITALS: BP 128/75; PULSE 59; RESP 18; TEMP 98.7; O2SAT 97
[2025-02-25] MEDS: REGADENOSON 0.4 MG/5 ML PF SYG IVP ONE (09:48)
[2025-02-25 12:00] VITALS: BP 148/91; PULSE 79; RESP 18; TEMP 99
--- NOTE | 2025-02-25 13:46 | PN ---
[facility] PROGRESS NOTE Date of Service: Feb 25, 2025 Time of Service: 13:42 SUBJECTIVE: [The patient, Jose Angel Barrett, is a 54-year-old male admitted for evaluation of chest pain. He was previously evaluated for midsternal, non-radiating, sharp, pressure-like chest pain associated with diaphoresis and shortness of breath. He denies current chest pain, shortness of breath, or other acute symptoms at this time. He just returned from a Lexiscan stress test; results are pending Cardiology interpretation. No new complaints reported. ] REVIEW OF SYSTEMS CONSTITUTIONAL: Denies fevers, chills, or night sweats. No unintentional weight loss reported. NEUROLOGICAL: Denies headache, amaurosis fugax, motor weakness, sensory deficit, vertigo/spinning sensation, gait abnormalities, or tremors. ENT: No hearing loss, otalgia, otorrhea, rhinitis, rhinorrhea, hoarseness, or sore throat. CARDIOVASCULAR: Positive for chest pain, shortness of breath. Denied any orthopnea, PND PULMONARY: Denies any shortness of breath, cough, phlegm/sputum, hemoptysis, pleuritic chest pain. SLEEP: Denies morning headaches, daytime somnolence or napping. Denies difficulty falling asleep, staying asleep, waking from sleep. Denies knowledge of snoring. GASTROINTESTINAL: Denies any type of dysphagia to either liquids or solids. Denies nausea, vomiting, pyrosis, early satiety, abdominal pain, diarrhea, constipation, or changes in stool consistency or caliber. Denies coffee-ground emesis, hematemesis, hematochezia, or melanotic stools. GENITOURINARY: Denies frequency, urgency, nocturia, hematuria or incontinence ( Storage/Irritative symptoms.) Low urinary stream, straining to void, urinary intermittency or hesitancy, splitting of the voiding stream, terminal dribbling. ENDOCRINOLOGIC: Denies polyuria, polydipsia, polyphagia or heat/cold intolerances. HEMATOLOGIC: Denies thrombophilia/previous clots, or coagulopathy/bleeding disorders. ONCOLOGIC: Denies personal history of malignancy. DERMATOLOGIC: Denies rashes or pruritus. PSYCHIATRIC: Denies any suicidal or homicidal ideation. Denies hallucinations. PHYSICAL EXAM GENERAL APPEARANCE: The patient is awake, alert, and oriented, in no acute cardiopulmonary distress. NEUROLOGICAL: Cranial nerves II-XII grossly intact. Motor is 5/5 in bilateral upper and lower extremities proximal to distal. No sensory deficits. HEENT: Face is symmetric. Pupils are equal and reactive. Extraocular movements are intact. NECK: Supple. No JVD. No thyromegaly. No submental, submandibular, pre- /postauricular, occipital or supraclavicular lymphadenopathy. CHEST: Normal chest expansion. No Telemetry. LUNGS: Absence of any rales, rhonchi or any wheezing. CARDIOVASCULAR: Regular. S1 and S2 normal. No appreciable rubs, murmurs or gallops. Mild pain on palpation in the midsternal area. ABDOMEN: Soft, nontender, and nondistended. There is no rebound, voluntary guarding, or rigidity. : Deferred. No Goldstein. EXTREMITIES: Non-edematous and not cyanotic. No clubbing. Good capillary refill. SKIN: No skin breakdown. Vital Signs (last 8hr) Date Time Temp Pulse Resp B/P (MAP) Pulse Ox O2 Delivery O2 Flow Rate FiO2 02/25/25 12:00 99.0 79 18 148/91 95 Room Air 02/25/25 08:00 98.8 59 18 128/75 97 Room Air LABS: Laboratory: Test 02/25/25 05:25 02/24/25 22:35 02/24/25 12:35 02/24/25 12:32 Range/Units White Blood Count 7.0 4.8-10.8 K/uL Red Blood Count 4.87 4.50-6.20 MIL/uL Hemoglobin 15.4 14.0-18.0 g/dL Hematocrit 44.3 42-54 % Mean Corpuscular Volume 91.0 79-99 fL Mean Corpuscular Hemoglobin 31.6 27.0-33.0 pg Mean Corpuscular Hemoglobin Concent 34.8 32.0-36.0 g/dL Red Cell Distribution Width 13.1 11.0-15.5 % Platelet Count 146 130-400 K/uL Mean Platelet Volume 11.9 H 7.5-10.5 fL Immature Granulocyte % (Auto) 0.4 0-1 % Neutrophils (%) (Auto) 71.5 40.0-77.0 % Lymphocytes (%) (Auto) 15.3 L 21.0-51.0 % Monocytes (%) (Auto) 11.3 3.0-13.0 % Eosinophils (%) (Auto) 1.1 0.0-8.0 % Basophils (%) (Auto) 0.4 0.0-5.0 % Neutrophils # (Auto) 5.0 1.8-7.7 K/uL Lymphocytes # (Auto) 1.1 1.0-4.8 K/uL Monocytes # (Auto) 0.8 0.1-1.0 K/uL Eosinophils # (Auto) 0.08 0.00-0.70 K/uL Basophils # (Auto) 0.03 0.00-0.20 K/uL Absolute Immature Granulocyte (auto 0.03 0-1 K/uL Nucleated Red Blood Cells 0.0 0.0-0.19 % Sodium Level 135 L 136-145 mmol/L Potassium Level 4.1 3.5-5.1 mmol/L Chloride Level 100 L 101-111 mmol/L Carbon Dioxide Level 28 21-32 mmol/L Blood Urea Nitrogen 9 7-18 mg/dL Creatinine 1.1 0.5-1.3 mg/dL Glomerular Filtration Rate Calc 79 >90 mL/min Random Glucose 110 H 70-105 mg/dL Total Calcium 8.2 L 8.5-10.1 mg/dL Troponin I High Sensitivity 5 4-75 ng/L Hemoglobin A1c 5.4 4.0-6.0 % Estimated Average Glucose (eAG) 108 70-126 mg/dL Magnesium Level 1.90 1.80-2.40 mg/dL B-Type Natriuretic Peptide 28 0-100 pg/mL Procalcitonin < 0.05 L 0.05-0.5 ng/mL Thyroid Stimulating Hormone (TSH) 1.71 0.36-3.74 uIU/mL Urine Color COLORLESS YELLOW Urine Appearance CLEAR CLEAR Urine pH 5.5 5.0-8.0 Urine Specific [place] 1.005 1.001-1.031 Urine Protein NEGATIVE NEGATIVE mg/dL Urine Glucose (UA) NEGATIVE NEGATIVE mg/dL Urine Ketones NEGATIVE NEGATIVE mg/dL Urine Occult Blood NEGATIVE NEGATIVE Urine Nitrate NEGATIVE NEGATIVE Urine Bilirubin NEGATIVE NEGATIVE mg/dL Urine Urobilinogen 0.2 0.2-1.0 mg/dL Urine Leukocyte Esterase NEGATIVE NEGATIVE Kristen/uL Urine Opiates Screen NEGATIVE NEGATIVE Urine Barbiturates Screen NEGATIVE NEGATIVE Urine Phencyclidine Screen NEGATIVE NEGATIVE Urine Amphetamines Screen NEGATIVE NEGATIVE Urine Benzodiazepines Screen NEGATIVE NEGATIVE Urine Cocaine Screen NEGATIVE NEGATIVE Urine Marijuana (THC) Screen NEGATIVE NEGATIVE Current Medications Medications (Trade) Dose Ordered Sig/Tiffanie Route PRN Reason Start Time Stop Time Status Last Admin Dose Admin Acetaminophen (TYLenol 500MG TAB) 500 mg Q6H PRN PO MILD PAIN (1-3) 02/24/25 16:30 03/26/25 16:29 Clonazepam (KLONopin 1MG TAB) 1 mg BID PO 02/24/25 21:00 03/26/25 20:59 02/24/25 21:05 1 MG Famotidine (Pepcid 20mg Vial) 20 mg BID IV 02/24/25 21:00 03/26/25 20:59 02/24/25 20:31 20 MG Home Med (Home Medication) VORIOXETINE 20MG DAILY PO 02/25/25 09:00 03/27/25 08:59 Lamotrigine (LAMIctal 100 MG TABLET) 150 mg DAILY PO 02/25/25 09:00 03/27/25 08:59 Magnesium Sulfate 50 ml @ 0 mls/hr PROTOCOL PRN IV hypomagnesemia 02/24/25 16:30 03/26/25 16:29 Morphine Sulfate (morPHINE 2MG SYG) 2 mg Q6H PRN IVP SEVERE PAIN (7-10) 02/24/25 16:30 03/03/25 16:29 Nitroglycerin (Nitrostat) 0.4 mg AD PRN SL CHEST PAIN 02/24/25 16:30 03/26/25 16:29 Potassium Chloride 100 ml @ 100 mls/hr AD PRN IV POTASSIUM PROTOCOL 02/24/25 16:30 03/26/25 16:29 Potassium Chloride (K-Dur/Klor-Con 20meq) 20 meq AD PRN PO POTASSIUM PROTOCOL 02/24/25 16:30 03/26/25 16:29 Potassium Chloride (KCl 10% Elixir 20meq/15ml) 20 meq AD PRN PO POTASSIUM PROTOCOL 02/24/25 16:30 03/26/25 16:29 DIAGNOSTICS / RADIOLOGY: [ ] ASSESSMENT: Chest pain, ACS rule out Troponins remain negative, no current symptoms, stress test and echo pending. History of smoking Quit three weeks ago. History of alcohol use Quit three weeks ago. History of cocaine use Remote, no recent use. PLAN: Continue admission to medical-surgical unit with telemetry monitoring Monitor for recurrence of chest pain or new symptoms Await Cardiology recommendations following Lexiscan stress test 2D echocardiogram pending Continue potassium and magnesium protocol as per hospital guidelines Follow up on TSH, HgbA1c, and lipid panel in the morning Monitor blood pressure; recheck as needed Further orders as per clinical course and test results Case discussed with Dr. Aquino, above plan was formulated ATTESTATION BY PHYSICIAN I have seen and examined the patient. I reviewed the documentation, medical decision making, and treatment plan as noted by the mid-level provider above. I agree with the findings and plan of care. CANELO AQUINO MD, [facility] Feb 25, 2025 13:46
--- NOTE | 2025-02-25 14:21 | NUR ---
DCP: HOME Pt sates he retired and went back to school at [employer]. pt lives alone in home he owns, Pt reports he is extremely active, works out 4x a week and walks. Pt needs no assist with his ADLS or home management or ambulation. Pt has no DME or in home care services. PCP is Harper villafuerte and uses [facility] for rx needs. DCP is home, pt denies dc needs. Community resources given
[2025-02-25 16:00] VITALS: BP 144/71; PULSE 80; RESP 18; TEMP 100.1
--- NOTE | 2025-02-25 18:17 | PN ---
CONSULT NOTE: CARDIOLOGY Reason for consult: Chest pain HPI/story at presentation: This is a pleasant 54-year-old male with past medical history as above presents for evaluation of chest discomfort. Pain is atypical, troponin 7 so far negative and cardiology was consulted. Stress test, echocardiogram ordered, 02/2025 Past medical history: See below Allergies, Meds See chart Review of systems Review of Systems Constitutional: Negative for chills and fever. HENT: Negative for ear discharge and ear pain. Eyes: Negative for photophobia and discharge. Respiratory: Negative for cough, sputum production and stridor. Cardiovascular: Negative for chest pain and palpitations. Gastrointestinal: Negative for diarrhea and vomiting. Genitourinary: Negative for frequency. Musculoskeletal: Negative for myalgias. Skin: Negative for rash. Neurological: Negative for focal weakness and seizures. Endo/Heme/Allergies: Negative for polydipsia. Psychiatric/Behavioral: Negative for hallucinations. Vitals see chart PHYSICAL EXAMINATION GENERAL: The patient is alert and oriented*3 HEENT: Nonicteric sclerae, non traumatic HEART: Regular rate and rhythm with no murmurs LUNGS: Clear to auscultation bilaterally ABDOMEN: No acute issues, non tender GENITAL, RECTAL: deferred SKIN: No rash NEUROLOGIC: NFND EXTREMITIES: No edema ASSESSMENT CHEST PAIN Atypical Associated with rest, good baseline functional capacity Very physically active Strong family history TOBACCO USE, FAMILY HISTORY, ALCOHOL USE, COCAINE USE CORE MEASURES Pending OTHER MEDICAL PROBLEMS Reviewed PLAN 02/24/2025 atypical symptoms, plan for stress test echocardiogram, will follow-up post. 02/25/2025 Denies any chest pain Currently pending stress test and echo results Further recommendations based on results ATTESTATION Case discussed with Dr. Sexton Vitals/Labs Vital Signs Date Time Temp Pulse Resp B/P (MAP) Pulse Ox O2 Delivery O2 Flow Rate FiO2 02/25/25 16:00 100.0 80 18 144/71 94 Room Air 02/25/25 08:00 0 21 Laboratory Tests 02/25/25 05:25 Medications Current Medications Ondansetron HCl 4 mg ONCE ONCE IVP Last administered on 02/24/25at 14:20; Start 02/24/25 at 14:30; Stop 02/24/25 at 14:31; Status DC Lidocaine HCl 10 ml ONCE ONCE PO Last administered on 02/24/25at 14:20; Start 02/24/25 at 14:30; Stop 02/24/25 at 14:31; Status DC Al Hydroxide/Mg Hydroxide 30 ml ONCE ONCE PO Last administered on 02/24/25at 14:19; Start 02/24/25 at 14:30; Stop 02/24/25 at 14:31; Status DC Pantoprazole Sodium 40 mg ONCE ONCE IVP Last administered on 02/24/25at 14:20; Start 02/24/25 at 14:30; Stop 02/24/25 at 14:31; Status DC Aspirin 325 mg ONCE ONCE PO; Start 02/24/25 at 15:00; Stop 02/24/25 at 15:01; Status DC Famotidine 20 mg BID IV Last administered on 02/24/25at 20:31; Start 02/24/25 at 21:00; Stop 03/26/25 at 20:59 Acetaminophen 500 mg Q6H PRN PO Last administered on 02/25/25at 14:07; Start 02/24/25 at 16:30; Stop 03/26/25 at 16:29 Nitroglycerin 0.4 mg AD PRN SL; Start 02/24/25 at 16:30; Stop 03/26/25 at 16:29 Morphine Sulfate 2 mg Q6H PRN IVP; Start 02/24/25 at 16:30; Stop 03/03/25 at 16:29 Potassium Chloride 100 ml @ 100 mls/hr AD PRN IV; Start 02/24/25 at 16:30; Stop 03/26/25 at 16:29 Potassium Chloride 20 meq AD PRN PO; Start 02/24/25 at 16:30; Stop 03/26/25 at 16:29 Potassium Chloride 20 meq AD PRN PO; Start 02/24/25 at 16:30; Stop 03/26/25 at 16:29 Magnesium Sulfate 50 ml @ 0 mls/hr PROTOCOL PRN IV; Start 02/24/25 at 16:30; Stop 03/26/25 at 16:29 Clonazepam 1 mg BID PO Last administered on 02/24/25at 21:05; Start 02/24/25 at 21:00; Stop 03/26/25 at 20:59 Lamotrigine 150 mg DAILY PO; Start 02/25/25 at 09:00; Stop 03/27/25 at 08:59 Home Med VORIOXETINE 20MG DAILY PO; Start 02/25/25 at 09:00; Stop 03/27/25 at 08:59 Regadenoson 0.4 mg STK-MED ONCE IVP Last administered on 02/25/25at 09:48; Start 02/25/25 at 09:31; Stop 02/25/25 at 09:32; Status [facility] Feb 25, 2025 18:17
[2025-02-25 20:00] VITALS: BP 132/71; PULSE 90; RESP 18; TEMP 100.1
[2025-02-25 23:40] VITALS: BP 118/70; PULSE 73; RESP 18; TEMP 99.2
[2025-02-26 03:47] VITALS: BP 123/78; PULSE 79; RESP 18; TEMP 99.2
[2025-02-26 04:09] LABS: NUCLEATED RED BLOOD CELLS 0.0 % (0.0-0.19); PLATELET COUNT (AUTO) 175.0 K/uL (130-400); RED BLOOD CELL COUNT(AUTO) 4.73 MIL/uL (4.50-6.20); RED CELL DISTRIBUTION WIDTH 12.9 % (11.0-15.5); WHITE BLOOD COUNT (AUTO) 6.8 K/uL (4.8-10.8)
[2025-02-26 04:26] LABS: CREATININE 1.1 mg/dL (0.5-1.3); GLOMERULAR FILTR. RATE CALC 79.0 mL/min (>90); GLUCOSE,RANDOM 107.0 mg/dL (70-105); SODIUM SERUM 135.0 mmol/L (136-145); UREA NITROGEN, BLOOD 9.0 mg/dL (7-18)
[2025-02-26 08:00] VITALS: O2SAT 98
[2025-02-26 08:01] VITALS: BP 112/74; PULSE 73; RESP 17; TEMP 98.1
--- NOTE | 2025-02-26 09:28 | HMCSR ---
APPROVED REPORT Height: 5 ft 11in Weight: 248 lbs TEST INDICATIONS Chest Pain The imaging protocol used to acquire images was Rest Tc-99m/stress Tc-99m 1 day Consent: The procedure was explained and understood by the patient. Informerd consent was witnessed by Ofelia Lipscomb RN First, low dose rest was performed then high dose stress. RESTING DATA: The resting ekg shows: NSR Rest SPECT myocardial perfusion imaging was performed in supine position minutes following the intravenous injection of 11 mCi of Tc-99 Sestamibi. Time of rest injection: 08:30: Date: 02/25/2025 Time of rest imagin:30: Date: 02/25/2025 PHARMACOLOGIC STRESS: Pharmacologic stress test was performed by injecting regadenoson 0.4 mg IV push followed by the intravenous injection of 29 mCi of Tc-99 Sestamibi. Time of stress injection: 09:43: Date: 02/25/2025 Time of stress imagin:: Date: 02/25/2025 Heart Rate at time of stress injection: 76 bpm. The images were gated to evaluate regional wall motion and calculate left ventricular ejection fraction. STRESS DETAILS Reason for Termination: Infusion complete Stress Symptoms: Dyspnea Max HR Achieved: 96 bpm % of APMHR Achieved: 69 Max Blood Pressure: 130/69 mmHg Stress ECG: NSR LV PERFUSION Uniform tracer uptake in all estrada. No evidence of ischemia or infarction present. Normal EF Low risk stress test as above Conclusion Uniform tracer uptake in all estrada. No evidence of ischemia or infarction present. Normal EF Low risk stress test as above
--- NOTE | 2025-02-26 09:30 | HMCSR ---
APPROVED REPORT EXAM: Two-dimensional and M-mode echocardiogram with Doppler and color Doppler. INDICATION ICD: Chest Pain 2D Dimensions RVDd 3.9 cm LVEF(%) 75.1 (>50%) LVED Vol(simp.) 113.0 mL IVSd 0.8 (0.7-1.1cm) FS(%) 44 % LVES Vol(simp.) 50.0 mL LVDd 5.3 (3.8-5.6cm) LA (2D) 4.1 (1.6-4.0cm) LVEF(%, simp.) 56 % PWd 1.0 (0.7-1.1cm) Ao Root(2D) 2.9 (2.0-3.7cm) LA ESV INDEX (BP) 24.07 mL/m2 LVDs 2.9 (2.5-4.0cm) LVOT diam 2.5 (1.8-2.4cm) IVC diam 2.0 cm Deformation Strain Apical 4 -19.6 % Apical 2 -18.5 % Apical 3 -19.2 % Global Strain -19.1 % M-Mode Dimensions EPSS 0.8 cm LA (MM) 4.2 (1.6-4.0cm) Ao Root(MM) 3.1 (2.0-3.7cm) Aortic Valve AoV Vmax 1.2 m/s Ao Peak GR 5.4 mmHg LVOT Vmax 1.1 m/s AoV VTI 0.2 m Ao Mean GR 3.1 mmHg LVOT VTI 0.22 m MAURY (VMAX) 4.36 cm2 MAURY (VTI) 4.5 cm2 Mitral Valve MV E Vmax 71.4 cm/s DECEL Time 246 ms MV A Vmax 79.3 cm/s P 1/2 T 49 ms E/A ratio 0.9 MVA (PHT) 4.4 cm2 TDI E/E' Medial 8.3 E/E' Lateral 9.7 Medial E' Peak V 8.63 cm/s Lateral E' Peak V 7.39 cm/s Pulmonary Valve PV Vmax 1.2 m/s PV VTI 0.26 m PV Mean GR 3.5 mmHg PV Peak GR 5.9 mmHg Left Ventricle The left ventricle is normal size. Normal wall motion There is normal left ventricular wall thickness. LVEF is 55-60%. The left ventricular diastolic function is normal. Right Ventricle The right ventricle is normal size. The right ventricular systolic function is normal. Atria The left atrium size is normal. The right atrium size is normal. Aortic Valve The aortic valve is normal in structure. No aortic regurgitation is present. There is no aortic valvular stenosis. Mitral Valve The mitral valve is normal in structure. Mitral regurgitation is trace. There is no mitral valve stenosis. Tricuspid Valve The tricuspid valve is normal in structure. There is no tricuspid valve regurgitation noted. Pulmonic Valve The pulmonary valve is normal in structure. There is no pulmonic valvular regurgitation. Great Vessels The aortic root is normal in size. The IVC is normal in size and collapses >50% with inspiration. Pericardium There is no pericardial effusion. Conclusion LVEF is 55-60%. The left ventricular diastolic function is normal. The left ventricle is normal size. Normal wall motion NO effusion Normal pulmonary pressures Study quality was adequate
--- NOTE | 2025-02-26 10:48 | DS ---
Discharge Summary Hospital Course Summary: The patient was admitted for evaluation of recurrent midsternal chest pain. On admission, he was hemodynamically stable and remained so throughout his hospitalization. Initial workup included serial troponins, which were negative, and a chest X-ray, which was unremarkable. Cardiology was consulted due to rec urrent symptoms and strong family history. The patient underwent a pharmacologic nuclear stress test and a transthoracic echocardiogram, both of which demonstrated no evidence of ischemia or infarction, normal left ventricular function, and no structural abnormalities. During his stay, the patient was monitored on telemetry and remained free of chest pain or shortness of breath. He tolerated the hospital course well without any acute events. He was counseled on risk factor modification and the importance of outpatient follow-up. At the time of discharge, he was asymptomatic and hemodynamically stable. He is to follow up with his primary care provider and clean rice broker as an outpatient. 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 History of smoking Quit three weeks ago. History of alcohol use Quit three weeks ago. History of cocaine use Remote, no recent use. Discharge Diagnoses: Atypical chest pain, resolved noncardiac related could be nicotine withdrawal and cocaine-related vasospasm (if recent use) History of tobacco use (recently quit) History of alcohol use (recently quit) History of cocaine use Strong family history of cardiac disease (father with pacemaker) Status post knee surgery (remote) Discharge Instructions: Follow-up With your PCP in 2-3 days Follow up with clean rice broker in one week Home Medications: Reported Medications Vortioxetine Hydrobromide (Brintellix) 20 Mg Tablet, 1 TAB PO DAILY for 30 Days, #30 TAB 0 Refills 02/24/25 Clonazepam (Clonazepam) 2 Mg Tablet, 1 MG PO BID for social anxiety, TAB 02/24/25 Lamotrigine (Lamotrigine) 100 Mg Tablet, 1.5 TAB PO DAILY for bipolar disorder for 30 Days, #30 TAB 0 Refills 02/24/25 Discontinued Scripts Albuterol Sulfate (Proair Hfa) 8.5 Gm Hfa.aer.ad, 2 PUFF IH QIDP, #1 INHALER Prov:NOAM THOMAS 03/09/21 Prednisone (Prednisone) 20 Mg Tablet, 2 TAB PO AD for 5 Days, #10 TAB 0 Refills TAKE 1 TAB BY MOUTH THREE TIMES PER DAY X3 DAYS, THEN TAKE 1 TAB BY MOUTH TWICE A DAY X2 DAYS, THEN TAKE 1 TAB BY MOUTH ONCE A DAY X1 DAY. Prov:AB WILLIAMELARENETTA DARBY 03/09/21 Amoxicillin/Potassium Clav (Augmentin 875-125 Tablet) 1 Each Tablet, 1 TAB PO BID for 10 Days, #20 TAB 0 Refills Prov:THOMASNOAM PA 03/09/21 Amoxicillin/Potassium Clav (Augmentin 875-125 Tablet) 1 Each Tablet, 1 TAB PO BID for 10 Days, #20 TAB 0 Refills Prov:NOAM THOMAS 02/04/21 Metoclopramide HCl (Reglan) 10 Mg Tablet, 10 MG PO TIDP, #20 TAB 0 Refills Prov:FLY MINA MD 11/05/20 Pantoprazole Sodium (Pantoprazole Sodium) 40 Mg Tablet.dr, 40 MG PO DAILY, #10 TAB 0 Refills Prov:FLY MINA MD 11/05/20 Ondansetron (Ondansetron Odt) 4 Mg Tab.rapdis, 4 MG PO Q6HPRN, #20 TAB 0 Refills Prov:FLY MINA MD 11/05/20 Dicyclomine HCl (Bentyl) 20 Mg Tab, 20 MG PO Q6HPRN, #20 TAB 0 Refills Prov:FLY MINA MD 11/05/20 Time spent arranging discharge: 31-60 minutes ATTESTATION BY PHYSICIAN I have seen and examined the patient. I reviewed the documentation, medical decision making, and treatment plan as noted by the mid-level provider above. I agree with the findings and plan of care. CANELO AQUINO MD, [facility] Feb 26, 2025 10:48
[2025-02-26 11:41] VITALS: BP 132/73; PULSE 79; RESP 18; TEMP 98.1
--- NOTE | 2025-02-26 12:40 | NUR ---
PT sitting in bed w/ eyes open 0 s/s of distress noted. Discharge instructions given to PT verbally and written in [place] language. I.V. removed intact w/o complications. PT escorted to POV via WC by COMBINATION BUILDING INSPECTOR.
== END 2025-02-26 12:40 | disposition home or self-care (01) | DRG 313 ==
LOC: EDH 12:10 → EDHIP 12:11 → 4DH 21:34
PROVIDERS: ADMIT Internal Medicine; ATTEND Internal Medicine
DX: R07.89 Other chest pain (principal); F14.90 Cocaine use, unspecified, uncomplicated; Z96.653 Presence of artificial knee joint, bilateral; Z87.891 Personal history of nicotine dependence; Z82.49 Family history of ischemic heart disease and other diseases of the circulatory system; Z86.16 Personal history of COVID-19
CPT/HCPCS: 36415; 71045; 78452; 80048; 80305; 81003; 83036; 83735; 83880; 84145; 84443; 84484; 85025; 85027; 93005; 93017; 93306; 93356; 93970; 96374; 99285; A9500; G0378; J2405; J2470; J2785; J1308